=== PATIENT | male | born 1960 | race Caucasian/White ===

== ENCOUNTER 2018-04-03 11:21 | Inpatient (IN) | payer BC ==
[2018-04-03] MEDS ORDERED: Piperacillin/Tazobactam 4.5 GM VIAL ONE (12:03)
[2018-04-03] MEDS ORDERED: Clindamycin/D5W 900 mg/50 ml Premix Bag ONE (12:04)
[2018-04-03 13:10] LABS: #Lymphocytes 0.3 thou/uL (1.20-3.40); #Monocytes 0.5 thou/uL (0.11-0.59); #Neutrophils 7.5 thou/uL (1.40-6.50); %Eosinophils 0.1 % (0.0-10.0); %Lymphocytes 3.2 % (21.0-51.0); %Monocytes 5.6 % (0.0-10.0); Hemoglobin 15.7 g/dL (14.0-18.0); Mean Corpuscular HGB CONC 32.9 g/dL (32.0-36.0); Mean Corpuscular Hemoglobin 31.2 pg (27.0-31.0); Mean Corpuscular Volume 94.6 fL (78.0-98.0); Mean Platelet Volume 8.1 fL (7.4-10.4); Platelet Count 138 thou/uL (130-400); RBC Distribution Width 11.9 % (11.5-14.5); Red Blood Cell (RBC) Count 5.03 mill/uL (4.70-6.10); White Blood Cell (WBC) Count 8.3 thou/uL (4.8-10.8)
[2018-04-03 13:30] LABS: Lactic Acid 3.4 mmol/L (0.5-2.2)
[2018-04-03 13:36] LABS: ALT (SGPT) 39 U/L (8-55); AST (SGOT) 33 U/L (5-34); Albumin 4.6 g/dL (3.5-5.0); Alkaline Phosphatase 47 U/L (40-150); Anion Gap 17 mmol/L (10-20); BUN (Urea Nitrogen) 21 mg/dL (8.4-25.7); Bilirubin, Total 1.5 mg/dL (0.2-1.2); CK (CPK) 98 U/L (30-200); Calc. Creatinine Clearance 0 mL/min (70-130); Calcium 10.6 mg/dL (7.8-10.44); Carbon Dioxide 22 mmol/L (22-29); Chloride 102 mmol/L (98-107); Estimated GFR-MDRD 51; Globulin 2.9 g/dL (2.4-3.5); Glucose 133 mg/dL (70-105); Potassium 4.2 mmol/L (3.5-5.1); Protein, Total 7.5 g/dL (6.0-8.3); Sodium 137 mmol/L (136-145)
[2018-04-03 13:38] LABS: CKMB 0.4 ng/mL (0-6.6); Troponin I Less than 0.010 ng/mL (< 0.028)
[2018-04-03] MEDS ORDERED: Ondansetron HCl/PF 4 MG/2 ML Vial IVP PRN (15:05)
[2018-04-03] MEDS ORDERED: Acetaminophen 325 MG TAB PO PRN (15:05)
[2018-04-03] MEDS ORDERED: HYDROcodone/Acetaminophen 5/325 mg Tablet PO PRN (15:05)
[2018-04-03] MEDS ORDERED: Senokot S 8.6-50 MG TAB PO PRN (15:05)
[2018-04-03] MEDS ORDERED: Calcium Carbonate 500 MG ChewTAB PO PRN (15:05)
[2018-04-03] MEDS ORDERED: Senokot 8.6 MG TAB PO PRN (15:06)
[2018-04-03] MEDS ORDERED: cloNIDine 0.1 MG TAB PO PRN (15:06)
[2018-04-03] MEDS ORDERED: traMADol HCl 50 MG TAB PO PRN (15:06)
[2018-04-03] MEDS ORDERED: Nitroglycerin 0.4 MG TAB (25 Tab Bottle) SL PRN (15:06)
[2018-04-03] MEDS ORDERED: Benzonatate 100 MG CAP PO PRN (15:06)
[2018-04-03] MEDS ORDERED: Diabetic Tussin 200 MG/10 ML UDCUP PO PRN (15:06)
[2018-04-03] MEDS ORDERED: Loratadine 10 MG TAB PO PRN (15:06)
[2018-04-03] MEDS ORDERED: Bisacodyl 5 MG TAB PO PRN (15:06)
[2018-04-03] MEDS ORDERED: hydrALAZINE 20 MG/ML VIAL SLOW IVP PRN (15:06)
[2018-04-03] MEDS ORDERED: Acetaminophen 500 MG TAB ONE (15:30)
--- NOTE | 2018-04-03 16:15 | RAD ---
SINGLE VIEW CHEST: Date: 04/03/18 COMPARISON: 07/07/11. HISTORY: Altered mental status. FINDINGS: Single view of the chest shows a normal sized cardiomediastinal silhouette. There is no evidence of c onsolidation, mass, or pleural effusion. The bones are unremarkable. IMPRESSION: No evidence of acute cardiopulmonary disease. POS: [facility]
[2018-04-03] MEDS ORDERED: Norepinephrine 8 MG/0.9% NS 250 ML ONE (16:18)
[2018-04-03] MEDS ORDERED: Milk Of Magnesia 30 ML UDCUP PO PRN (16:28)
[2018-04-03] MEDS ORDERED: CCU Electrolyte Replacement 1 EACH IVPB ONE (16:28)
[2018-04-03] MEDS ORDERED: Mag-Al 1200 mg/1200 mg/30 ML UDCUP PO PRN (16:28)
[2018-04-03] MEDS ORDERED: Potassium Phosphate 12 MMOL in Sodium Chloride 0.9% 250 ML 250 ML IV PRN (16:39)
[2018-04-03] MEDS ORDERED: Potassium Phosphate 9 MMOL in Sodium Chloride 0.9% 100 ML IVPB PRN (16:39)
[2018-04-03] MEDS ORDERED: CCU ELECTROLYTE REPLACEMENT PROTOCOL FS PRN (16:39)
[2018-04-03] MEDS ORDERED: Potassium Chloride 40 MEQ in Premix Bag 1 BAG IVPB PRN (16:39)
[2018-04-03] MEDS ORDERED: Potassium Chloride 20 MEQ TAB PO PRN (16:39)
[2018-04-03] MEDS ORDERED: Magnesium Oxide 400 MG TAB PO PRN ×2 (16:39)
[2018-04-03] MEDS ORDERED: Potassium Chloride 40 MEQ in Sodium Chloride 0.9% 250 ML 250 ML IVPB PRN (16:39)
[2018-04-03] MEDS ORDERED: Potassium Phosphate 15 MMOL in Sodium Chloride 0.9% 250 ML 250 ML IV PRN (16:39)
[2018-04-03] MEDS ORDERED: Magnesium 2 GM/NS 0.9% 100 ML 2 GM in Premix Bag 1 BAG IVPB PRN (16:39)
--- NOTE | 2018-04-03 17:06 | RAD ---
LEFT ELBOW FOUR VIEWS: CLINICAL HISTORY: Fall with history of cellulitis. FINDINGS: There is soft tissue prominence about the left elbow. No significant joint capsular distention. No acute fracture visualized. IMPRESSION: 1. Soft tissue prominence of the left elbow. Correlation suggested as to the prior clinical history of cellulitis. 2. No underlying acute osseous abnormalities visualized. POS: [facility]
--- NOTE | 2018-04-03 17:10 | HP ---
DATE OF ADMISSION: 04/03/2018 PRIMARY CARE PHYSICIAN: Dr. Haider. CHIEF COMPLAINT: Fever, left elbow pain and swelling after a fall. HISTORY OF PRESENT ILLNESS: Mr. Neumann is a very pleasant 57-year-old otherwise healthy male except for the history of mild intermittent asthma who presented to the emergency room with above-mentioned complaint. History is mainly obtained by the patient's and daughter present in the room. The patient is rather somnolent and not feeling very well at this time, but he is awake, alert, oriented x3 to help supplement the history. Electronic medical records have been reviewed and the case has be en discussed with admitting ER physician, Dr. Gallegos. 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 Two days ago while getting out o f his pickup truck, he fell face forward on his chest and hurt his left elbow. He managed to get up and go to work overnight that day, but when he came back next morning, he noticed that he was having more pain in the left elbow which was now significantly swollen. His also noted that he is some what confused and was not able to answer the question appropriately and noticed high fever. He start ed to have vomiting shortly afterwards. They presented to an urgent care where he received some IM a ntibiotic and oral antibiotic prescriptions were provided. Unfortunately, the patient was not able t o take oral antibiotics as he started to continue to throw up, so brought him to the ER instead. In the emergency room upon presentation, his blood pressure was 116/80 with a heart rate of 120 and a temperature of 101.6. He continued to become severely hypotensive in the emergency room and was res uscitated with over 4 liters of normal saline. His initial workup revealed lactic acid of 3.4, creat inine elevated to 1.42. Otherwise, no other clear signs or symptoms of infection. His WBCs are norm al at 8.3 but neutrophil count is elevated to 91%. No clear source of infection other than the left elbow was found. His left elbow was found to be hot and tender to touch and somewhat swollen without any fluctuance on palpation. Chest x-ray was also unremarkable. He was diagnosed with having sever e sepsis with septic shock and was given appropriate antibiotics in the form of clindamycin, Zosyn, a nd vancomycin. At the time of my examination, the patient's blood pressure has again trended down in the 70s/60s and his heart rate remained in the 120s. He will be started on pressors and will be admitted to the Cri ticme Care Unit. I have discussed the patient with Infectious Disease, Dr. Rob as well as on-call critical care physician, Dr. Jiménez. I have requested the emergency room physician to put a central venous access for this patient. The patient and family otherwise denies any other recent illnesses. He denies any headache, vision c hanges or neck stiffness. One of the grandkids were having some viral infection, but was mild. He d enies any chest pain, shortness of breath or cough. He denies any diarrhea or abdominal pain. He de nies any dysuria, frequency, urgency, or hematuria. He denies high fevers or body ache. PAST MEDICAL HISTORY: Diet-controlled mild intermittent asthma and history of esophageal dilatation. PAST SURGICAL HISTORY: Nasal surgery. PSYCHIATRIC HISTORY: None. SOCIAL HISTORY: He has no history of drug, tobacco or alcohol abuse. 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 ALLERGIES: No known medication allergies. FAMILY HISTORY: Significant for stroke in his mother as well as Alzheimer's run in his family. No h istory of premature coronary artery disease or cancer. No bleeding or clotting disorders. CURRENT MEDICATIONS: Nexium 20 mg daily over the counter and Advair Diskus as needed. REVIEW OF SYSTEMS: A 12-point review of systems was done and is negative except for those mentioned in the history and physical. LABORATORY DATA: CBC shows WBC is 8.3 with 91% neutrophils, otherwise unremarkable. Serum chemistry , BUN normal at 21, creatinine elevated mildly at 1.42. Lactic acid 3.4, total calcium 10.6, total b ilirubin 1.5 with normal AST and ALT. Chest x-ray by my review has no evidence of pneumothorax or he mothorax. No pleural effusion or edema. A 12-lead EKG by my review shows normal sinus rhythm withou t any acute ST or T-wave changes. PHYSICAL EXAMINATION: VITAL SIGNS: Most recent blood pressure 77/68 prior to starting him on pressors. Otherwise, vital s igns upon presentation, blood pressure 116/80, pulse of 120, respirations 24, saturating 96% on room air, temperature 101.6. GENERAL: He does appear sick and toxic appearing. He is lethargic and somnolent, but when woken up he is awake, alert, oriented x3. HEENT: Mucous membranes are slightly dry. No oropharyngeal exudate or erythema. No oral thrush. H ead is normocephalic, atraumatic. Pupils equal, reactive to light and accommodation. Extraocular mo vement intact. NECK: Supple without any lymphadenopathy, JVD or bruit. CHEST: Clear to auscultation without any wheezing, rales or rhonchi, though difficult to auscultate due to positioning. CARDIOVASCULAR: Regular rate and rhythm is tachycardic without any significant murmurs or arrhythmia . ABDOMEN: Soft, nontender, nondistended, positive bowel sounds. EXTREMITIES: Free of any cyanosis, clubbing, or edema except for left elbow edema and redness as wel l as tenderness. No palpable fluid at this time. Range of motion is within normal limit. Radial pu lses are felt bilaterally. No muscle weakness noticed in the arms bilaterally. NEUROLOGIC: Nonfocal. SKIN: Free of any rashes or bruises. Feels warm and dry to touch. PSYCHIATRIC: Normal affect. IMPRESSION AND PLAN: 1. Severe sepsis with septic shock. The source at this time appears to be left elbow cellulitis. W e will get an x-ray of the elbow to rule out an abscess. It does not appear to be the case on physic al examination. We will cover him for aerobes and anaerobes, gram positive and gram negatives. We w ill request consultation with Infectious Disease as well. He will be continued on IV fluids and we w ill get a central line to measure the central venous pressure and start him on Levophed as necessary to keep MAP above 65. He will be admitted to Critical Care Unit. We will also check urinalysis to r ule out urinary tract infection as a cause. No other obvious source of infection is evident at this time. He will be on the CCU electrolyte protocol. We will also request Pulmonary Critical Care phys Dr. Tino doe to follow the patient along for further recommendations regarding Critical Care. 3. Acute kidney insufficiency, likely secondary to severe sepsis. Continue IV fluids and avoid any nephrotoxic medications. We will recheck in the morning. 4. Elevated lactic acid, likely secondary to severe sepsis as well as hypotension. Fluid resuscitat ion has been provided. Recheck lactic acid as well. 5. History of asthma, currently controlled. Add nebulizers as needed 6. Deep venous thrombosis and gastrointestinal prophylaxis. DISPOSITION: Mr. Neumann is currently being admitted to the hospital for severe sepsis and septic sh ock and end-organ damage in the form of renal failure. Estimated length of stay at this time is at l east 3-4 midnights. Further management will depend upon his clinical course. Total time spent in care of this patient 40 minutes.
--- NOTE | 2018-04-03 17:33 | RAD ---
PORTABLE CHEST: 04/03/18 HISTORY: Central line placement. COMPARISON: Earlier exam the same day. There has been interval placement of a right sided subclavian line. Catheter tip overlies the superio r vena cava. No signs of pneumothorax. No other interval change in the appearance of the chest. IMPRESSION: Placement of a right sided subclavian line. No signs of pneumothorax. POS: [facility]
[2018-04-03] MEDS ORDERED: Clindamycin/D5W 300 MG/50 ML BAG IVPB SCH (18:00)
[2018-04-03] MEDS: Piperacillin/Tazobactam 3.375 GM in Sodium Chloride 0.9% 100 ML IVPB SCH ×2 (18:36→23:51)
[2018-04-03] MEDS: Sodium Chloride 0.9% 1,000 ML IV SCH ×2 (18:40→23:51)
[2018-04-03 18:46] VITALS: BMI 30.1
[2018-04-03] MEDS: Famotidine 20 MG TAB PO SCH (21:13)
[2018-04-03 21:17] LABS: Bilirubin Small (Negative); Blood, Urine Negative (Negative); Clarity CLEAR (Clear); Glucose, Urine (Dipstick) Negative (Negative); Leukocyte Small (Negative); Nitrite Negative (Negative); Protein, Urine (Dipstick) Trace mg/dL (Neg-Trace); Specific Gravity, Urine 1.026 (1.002-1.036); Urobilinogen 0.2 mg/dL (0.2-1.0)
[2018-04-03 21:18] LABS: Bacteria/HPF None Seen HPF (None Seen); Hyaline Casts/LPF 0-3 HYALINE CAST LPF (0-3 Hyaline); Pathc Cast-AUWi Flag 0.14 (0-2.49); Squamous Epithelial 0-3 HPF (0-3)
[2018-04-03] MEDS: Clindamycin/D5W 300 MG in Premix Bag 1 BAG IVPB SCH (21:51)
[2018-04-03] MEDS: Mometasone/Formoterol 120 PUFF INHALER INH SCH (22:51)
[2018-04-03 23:08] LABS: Lactic Acid 3.7 mmol/L (0.5-2.2)
[2018-04-03] MEDS: Norepinephrine 8 MG/0.9% NS 250 ML IVPB PRN (23:52)
[2018-04-04] MEDS: Clindamycin/D5W 300 MG in Premix Bag 1 BAG IVPB SCH ×2 (02:07→08:43)
[2018-04-04 04:56] LABS: Anion Gap 15 mmol/L (10-20); BUN (Urea Nitrogen) 22 mg/dL (8.4-25.7); Calc. Creatinine Clearance 66 mL/min (70-130); Calcium 7.5 mg/dL (7.8-10.44); Carbon Dioxide 16 mmol/L (22-29); Chloride 105 mmol/L (98-107); Estimated GFR-MDRD 48; Glucose 147 mg/dL (70-105); Potassium 3.8 mmol/L (3.5-5.1); Sodium 132 mmol/L (136-145)
[2018-04-04] MEDS: Norepinephrine 8 MG/0.9% NS 250 ML IVPB PRN ×2 (05:22→12:19)
[2018-04-04] MEDS: Piperacillin/Tazobactam 3.375 GM in Sodium Chloride 0.9% 100 ML IVPB SCH (05:22)
[2018-04-04 05:27] LABS: Band 32 % (5-11); Lymphocytes 3 % (21-51); MDiff Complete? YES; Mean Corpuscular HGB CONC 33.4 g/dL (32.0-36.0); Mean Corpuscular Hemoglobin 31.7 pg (27.0-31.0); Mean Platelet Volume 7.3 fL (7.4-10.4); Metamyelocyte 7 % (0-0); Monocytes 4 % (0-10); Neutrophil 54 % (42-75); PLT Morphology Comment Appears Adequate; Platelet Count 134 thou/uL (130-400); Red Blood Cell (RBC) Count 4.11 mill/uL (4.70-6.10); White Blood Cell (WBC) Count 13.1 thou/uL (4.8-10.8)
[2018-04-04 06:37] LABS: Lactic Acid 2.8 mmol/L (0.5-2.2)
[2018-04-04] MEDS: Famotidine 20 MG TAB PO SCH ×2 (08:40→20:35)
[2018-04-04] MEDS: Sodium Chloride 0.9% 1,000 ML IV SCH (08:40)
[2018-04-04] MEDS: Saccharomyces boulardii 250 MG CAP PO SCH (08:40)
[2018-04-04] MEDS: Enoxaparin Sodium 40 MG/0.4 ML SYRINGE SC SCH (08:41)
[2018-04-04] MEDS: Vancomycin HCl 1.75 GM in Sodium Chloride 0.9% 500 ML IVPB SCH (12:22)
--- NOTE | 2018-04-04 12:28 | CON ---
DATE OF CONSULTATION: 04/04/2018 SERVICE: Pulmonary Medicine. REASON FOR CONSULTATION: Septic shock. HISTORY OF PRESENT ILLNESS: The patient is a 57-year-old white male with past medical history significant for essentially nothing. He ended up with a hot, red, swollen elbow/skin on his left forearm. He is also having a fever. This was in place for a couple of days prior to presentation to the emergency department. He was finally brought to the ED because of altered mentation. His blood pressures were quite low. He got multiple boluses of fluid. He did have a transient response to that fluid bolus and then subsequently have low blood pressure again. As such, a central line and pressors were initiated. He cannot provide any additional elements of the history, but indicates that for 1 week ago, he was previously in his usual state of health. PAST MEDICAL HISTORY: 1. Asthma, mild intermittent. 2. History of esophageal stricture. PAST SURGICAL HISTORY: Nasal surgery and EGD. SOCIAL HISTORY: Negative for alcohol, tobacco or illicit drug use. 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 He denies any exposure to chemicals, dust asbestos or tuberculosis. FAMILY HISTORY: Noncontributory. ALLERGIES: No known drug allergies. MEDICATIONS: List of his inpatient medications was reviewed. No specific updates were made at this time. REVIEW OF SYSTEMS: General, head, ears, eyes, nose, throat, cardiovascular, respiratory, GI, , musculoskeletal, neurologic and skin is negative except as mentioned in HPI. PHYSICAL EXAMINATION: VITAL SIGNS: Afebrile currently with a T-max of 101 in the Emergency Department , pulse 117, blood pressure 112/78, respirations 27, saturation 96% on room air. GENERAL: The patient is awake and alert, in no apparent distress. LUNGS: Excellent air entry. No prolonged expiratory phase, wheezing, rhonchi or crackles. HEART: Normal rate, regular. ABDOMEN: Soft, nontender, nondistended. Bowel sounds are positive. MUSCULOSKELETAL: No cyanosis or clubbing. There is no pitting in the bilateral lower extremities. He has got some nonpitting edema of the left elbow and forearm. The erythema is actually improving to significant degree. GENITOURINARY: No Marshall. NEUROLOGIC: Grossly nonfocal. LABORATORY DATA: WBC 13.1 and increasing, hemoglobin 13.0, platelets 134,000. Band count is 32% today. Glucose 147, lactate is down trending to 2.8. Creatinine 1.50. Basic metabolic profile is otherwise unremarkable. Bicarbonate is 16, but his anion gap is improved to 15. Urinalysis is negative. IMAGING DATA: 1. Chest x-ray demonstrates no acute cardiopulmonary abnormality. There is no pneumothorax present after a right-sided subclavian central venous catheter was placed. They were in good position. There is likely small bilateral pleural effusions present. 2. Elbow x-ray demonstrates soft tissue prominence of the left elbow. No osseous abnormalities are identified. ASSESSMENT: 1. Septic shock. 2. Cellulitis. 3. Asthma, mild intermittent. DISCUSSION AND PLAN: I will continue our empiric antibiotics. ID is interested in having Surgery to look at him to see whether or not this thing needs to be explored. Pulmonary Critical Care will continue to follow along while the patient remains in this location. We have him on pressors, which will be weaned through time. His CVP is adequate. IV fluids will be interrupted and we will give the patient a diet because he has cleared his encephalopathy. End organ damage appears to be doing better. The acidosis is likely secondary to fluid resuscitation. He will need to remain in the ICU until he is off of his pressor. 70 minutes have been devoted to this patient in various activities. I personally reviewed all imaging studies and laboratory data noted within this document. For fifty percent of this time, I was interacting with the patient at the bedside or coordinating care with the care team. For the remainder of the time I was immediately available to the patient in the hospital unit. DHAVAL
--- NOTE | 2018-04-04 13:34 | CON ---
DATE OF CONSULTATION: 04/04/2018 REASON FOR CONSULTATION: Inflammatory process, left elbow, skin, and soft tissues. 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 Initial BP 116/80 with ta chycardia and temperature 101.6. He became hypotensive. He was given a large volume of IV fluids. Initial lactic acid 3.4, creatinine 1.42, and WBC was 8.3. Neutrophil count 91%. Patient was starte d on broad-spectrum coverage. Currently, he is in the ICU. He is still on vasopressors, but Levophe d dose has been decreased or titrated downwards. He is awake, a little bit confused, but he knows hi s name and recognizes his , who is in the room with him. Appears in some distress, not a lot of pain in the left elbow soft tissues. He has no headaches; no visual symptoms, sore throat, odynophag ia, or dysphagia; no dyspnea or chest pain; no abdominal pain or diarrhea; no genitourinary symptoms; no other joint symptoms. PAST MEDICAL HISTORY: Mild asthma and esophageal dilation. PAST SURGICAL HISTORY: Nasal surgery. SOCIAL HISTORY: Never smoker. 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 ALLERGIES: None. FAMILY HISTORY: CVA, Alzheimer's. CURRENT MEDICATION LIST: He had been on Zosyn and clindamycin. Now, he is on vancomycin, meropenem, and higher dose of clindamycin. He is also on p.r.n. medications for analgesia, IV fluids, Levophed , tramadol. ALLERGIES: No known drug allergies. PHYSICAL EXAMINATION: VITAL SIGNS: T-max 100.4, now 98.8; heart rate is 115, blood pressure 107/74, and O2 sat 93%. SKIN EXAM: Shows erythema around the left elbow soft tissues. There is some swelling, but not a lot of swelling. He has good range of motion of the left elbow without pain. The pain is mostly from p alpation of the soft tissues, particularly at the distal left arm. This is at the posterior aspect. There is some edema of the area. No discoloration. No lymphadenopathy. HEENT: Ocular movements are conjugate. Pupils are equal. Oral cavity dry. NECK: Supple. LUNGS: With symmetric clear breath sounds. HEART: S1 and S2, regular rate. No S3 or S4. ABDOMEN: Soft, not distended or tender. No ascites. No bladder distention. EXTREMITIES: No joint inflammatory activity outside the area of involvement. Pulses 1+ in dorsalis pedis and radialis are 1+ as well. NEUROLOGIC: He is awake, knows his name, and he knows where he is. Still a little bit drowsy. LABORATORY DATA: White cell count went up from 8.3-13, hemoglobin is down to 13, MCV 95, platelets 1 34, 54% neutrophils, 32% bands. Sodium 132, creatinine is at 1.5. Liver profile with bilirubin of 1 .5. Transaminases normal, albumin 4.6, and urinalysis was not remarkable. Microbiology: We have 2 sets of blood cultures that are pending at this time. IMAGING STUDIES: There is a chest x-ray with no lung infiltrates. There is an elbow x-ray with soft tissue prominence. ASSESSMENT: 1. History of asthma. 2. Fall with initially felt to be mild injury to the left elbow soft tissues and now with rapidly pr ogressive inflammatory process with sepsis. DISCUSSION: The clinical examination is more consistent with cellulitis. Possibility of an aggressi ve necrotizing infection is considered as well as bacteremia from plain cellulitis. Abscess formatio n is also considered, possible, although not obvious in the clinical exam. We will proceed MRI with and without contrast. Orthopedic surgeon consult. Switch antimicrobial therapy to meropenem, vancom ycin, and higher dose of clindamycin. Supportive care.
[2018-04-04] MEDS: Clindamycin/D5W 900 MG in Premix Bag 1 BAG IVPB SCH ×2 (13:59→21:38)
[2018-04-04] MEDS: HYDROcodone/Acetaminophen 5/325 mg Tablet PO PRN (14:00)
[2018-04-04] MEDS ORDERED: Clindamycin/D5W 900 MG in Premix Bag 1 BAG IVPB SCH (14:00)
--- NOTE | 2018-04-04 15:08 | PDOC.PN ---
- Subjective Encounter Start Date: 04/04/18 Encounter Start Time: 15:06 Subjective: feels somewhat better.care discussed w at bedside -: elbow more swollen and warm - Objective MAR Reviewed: Yes Vital Signs & Weight: Vital Signs (12 hours) Temp Pulse Ox 04/04/18 14:00 102.5 F H 04/04/18 12:00 98.8 F 04/04/18 07:17 94 L 04/04/18 07:11 94 L 04/04/18 07:00 98.1 F 04/04/18 04:00 99.7 F H Weight Weight 192 lb 3.889 oz Most Recent Monitor Data Heart Rate from ECG 121 NIBP 130/85 NIBP BP-Mean 100 Respiration from ECG 30 SpO2 98 I&O: 04/03/18 04/04/18 04/05/18 06:59 06:59 06:59 Intake Total 2845.7 650 Output Total 700 1000 Balance 2145.7 -350 Result Diagrams: 04/04/18 03:55 04/04/18 03:55 Additional Labs: Microbiology 04/03/18 11:45 Venous blood - Right Hand Blood Culture - Preliminary Specimen has been received and culture in progress. No Growth to date. 04/03/18 11:45 Venous blood - Right Arm Blood Culture - Preliminary Specimen has been received and culture in progress. No Growth to date. Phys Exam - Physical Examination Constitutional: NAD still weak and tired looking but more awake and alert HEENT: PERRLA, moist MMs, sclera anicteric, TM's clear, oral pharynx no lesions , 2+ tonsils Neck: no nodes, no JVD, supple, full ROM Respiratory: no wheezing, no rales, no rhonchi, clear to auscultation bilateral Cardiovascular: RRR, no significant murmur, no rub Gastrointestinal: soft, non-tender, no distention, positive bowel sounds Musculoskeletal: no edema, pulses present L elbow w more induration & extension of swelling into forearm w some palpable fluctuance Neurological: non-focal, normal sensation, moves all 4 limbs Dx/Plan (1) Septic shock Code(s): A41.9 - SEPSIS, UNSPECIFIED ORGANISM; R65.21 - SEVERE SEPSIS WITH SEPTIC SHOCK Status: Acute (2) Cellulitis of left elbow Code(s): L03.114 - CELLULITIS OF LEFT UPPER LIMB Status: Acute (3) ABIMBOLA (acute kidney injury) Code(s): N17.9 - ACUTE KIDNEY FAILURE, UNSPECIFIED Status: Acute (4) Asthma Code(s): J45.909 - UNSPECIFIED ASTHMA, UNCOMPLICATED Status: Chronic - Plan continue antibiotics, out of bed/ambulate, DVT proph w/SCDs Abx changed to broader spectrum & higher dose. -: Will consult Ortho as infection seems to be worse.? septic arthritis -: will need MRI elbow -: ID and PCCM following -: IVF and pressors adjust per dr Jiménez. * .AM labs * BP better Review of Systems - Review of Systems Constitutional: fever, weakness, malaise. negative: chills, sweats, other ENT: negative: Ear Pain, Ear Discharge, Nose Pain, Nose Discharge, Nose Congestion, Mouth Pain, Mouth Swelling, Throat Pain, Throat Swelling, Other Respiratory: negative: Cough, Dry, Shortness of Breath, Hemoptysis, SOB with Excertion, Pleuritic Pain, Sputum, Wheezing Cardiovascular: negative: chest pain, palpitations, orthopnea, paroxysmal nocturnal dyspnea, edema, light headedness, other Gastrointestinal: negative: Nausea, Vomiting, Abdominal Pain, Diarrhea, Constipation, Melena, Hematochezia, Other Genitourinary: negative: Dysuria, Frequency, Incontinence, Hematuria, Retention , Other Musculoskeletal: Other. negative: Neck Pain, Shoulder Pain, Arm Pain, Back Pain , Hand Pain, Leg Pain, Foot Pain Skin: negative: Rash, Lesions, [place], Bruising, Other Neurological: negative: Weakness, Numbness, Incoordination, Change in Speech, Confusion, Seizures, Other - Medications/Allergies Allergies/Adverse Reactions: Allergies Allergy/AdvReac Type Severity Reaction Status Date / Time No Known Drug Allergies Allergy Verified 04/03/18 16:27 Medications: Current Medications Acetaminophen (Tylenol) 650 mg PO Q4H PRN PRN Reason: Headache/Fever/Mild Pain (1-3) Last Admin: 04/03/18 18:39 Dose: 650 mg Hydrocodone Bitart/Acetaminophen (Wallace 5/325) 1 tab PO Q4H PRN PRN Reason: Moderate Pain (4-6) Hydrocodone Bitart/Acetaminophen (Wallace 5/325) 2 tab PO Q4H PRN PRN Reason: Severe Pain (7-10) Last Admin: 04/04/18 14:00 Dose: 2 tab Al Hydroxide/Mg Hydroxide (Maalox) 30 ml PO Q8H PRN PRN Reason: Indigestion Albuterol/Ipratropium (Duoneb) 3 ml NEB [id number] PRN PRN Reason: SOB &/or Wheezing Clonidine (Catapres) 0.1 mg PO Q4H PRN PRN Reason: Systolic BP > 160 Enoxaparin Sodium (Lovenox) 40 mg SC 0900 [facility] Last Admin: 04/04/18 08:41 Dose: 40 mg Famotidine (Pepcid) 20 mg PO BID [facility] Last Admin: 04/04/18 08:40 Dose: 20 mg Guaifenesin (Robitussin Sf) 200 mg PO Q4H PRN PRN Reason: Cough Hydralazine HCl (Apresoline) 10 mg SLOW IVP Q4H PRN PRN Reason: Systolic BP > 170 Norepinephrine Bitartrate (Levophed) 250 mls @ 0 mls/hr IVPB PRN PRN; Protocol PRN Reason: To maintain MAP > 65 Last Admin: 04/04/18 12:19 Dose: 250 mls Vancomycin HCl 1.75 gm/ Sodium (Chloride) 500 mls @ 250 mls/hr IVPB Q24HR [facility] Last Admin: 04/04/18 12:22 Dose: 500 mls Meropenem 500 mg/ Sodium (Chloride) 100 mls @ 200 mls/hr IVPB Q6HR [facility] Clindamycin Phosphate/Dextrose (900 mg/ Device) 50 mls @ 100 mls/hr IVPB Q8HR [facility] Last Admin: 04/04/18 13:59 Dose: 50 mls Loratadine (Claritin) 10 mg PO DAILYPRN PRN PRN Reason: Sinus Symptoms Mometasone Furoate/Formoterol Fumar (Dulera 100 Mcg/5 Mcg Inhaler) 2 puff INH BID-RT [facility] Last Admin: 04/03/18 22:51 Dose: 2 puff Nitroglycerin (Nitrostat) 0.4 mg SL Q5MIN PRN PRN Reason: Chest Pain Ccu Electrolyte (Replacement Protocol) 0 each FS PRN PRN PRN Reason: FOR ELECTROLYTE REPLACEMENT Ondansetron HCl (Zofran) 4 mg IVP Q6H PRN PRN Reason: Nausea/Vomiting Last Admin: 04/03/18 23:58 Dose: 4 mg Saccharomyces Boulardii (Florastor) 250 mg PO DAILY [facility] Last Admin: 04/04/18 08:40 Dose: 250 mg Sodium Chloride (Flush - Normal Saline) 10 ml IVF Q12HR [facility] Sodium Chloride (Flush - Normal Saline) 10 ml IVF PRN PRN PRN Reason: Saline Flush Tramadol HCl (Ultram) 50 mg PO Q4H PRN PRN Reason: Moderate Pain (4-6) Last Admin: 04/03/18 23:58 Dose: 50 mg
--- NOTE | 2018-04-04 16:08 | CON ---
DATE OF CONSULTATION: 04/04/2018 HISTORY OF PRESENT ILLNESS: Mr. Neumann is a 57-year-old white male, who fell while working [place], sustained some injury to the left elbow. This was a week ago. The patient sta otoniel he gradually developed increased redness and swelling around the left elbow into the forearm and up toward the shoulder. He had some fever, some vomiting, and he was admitted to the hospital yester day. The patient had temperature of around 100.4. He was started on antibiotics. There was a quest ion of if the primary problem was the elbow and possibly septic arthritis in the left elbow. The pat ient's last temperature was 102.5. The patient states that he is able to move his left elbow with mi nimal discomfort, and he is able to pronate and supinate the forearm with minimal discomfort. I was called to evaluate the left elbow if I felt that the patient has septic arthritis of the left elbow. Attempts were made to do an MRI of the left elbow, but the patient could not stay in the machine, be cause of claustrophobia, anxiety problems. PAST MEDICAL HISTORY: Medical illnesses: Asthma and esophageal dilatation. He has had nasal surger y. ALLERGIES: None. PHYSICAL EXAMINATION: Left elbow, the patient does have swelling and some erythema around the elbow that goes along the forearm, down toward the wrist. He also has some erythema and swelling up into t he arm toward the shoulder. He is able to actively and I am able to passively move his elbow without pain. He is able to have full pronation and supination with minimal discomfort. He is able to full y flex and extend all of his digits in his left hand also with minimal discomfort. Left hand is neur ovascularly intact. I reviewed the x-rays of the left elbow and they are essentially normal. IMPRESSION: It does not appear that the patient has infection in the left elbow joint. He would not be able to move it as easily and without any pain, as he is doing today, but we will certainly keep an eye on him. I will follow and see how he is looking tomorrow. We will get the MRI tomorrow with the help of anesthesia.
[2018-04-04] MEDS: Meropenem 500 MG in Sodium Chloride 0.9% 100 ML IVPB SCH ×2 (17:29→23:40)
[2018-04-04] MEDS: Mometasone/Formoterol 120 PUFF INHALER INH SCH (18:49)
[2018-04-04] MEDS ORDERED: Vancomycin HCl 1.25 GM in Sodium Chloride 0.9% 250 ML 300 ML IVPB SCH (21:00)
[2018-04-05] MEDS: Norepinephrine 8 MG/0.9% NS 250 ML IVPB PRN (01:39)
[2018-04-05] MEDS: Meropenem 500 MG in Sodium Chloride 0.9% 100 ML IVPB SCH ×4 (05:43→23:41)
[2018-04-05] MEDS: HYDROcodone/Acetaminophen 5/325 mg Tablet PO PRN (06:01)
[2018-04-05] MEDS: Clindamycin/D5W 900 MG in Premix Bag 1 BAG IVPB SCH ×3 (06:20→21:34)
[2018-04-05 06:41] LABS: Anion Gap 9 mmol/L (10-20); BUN (Urea Nitrogen) 15 mg/dL (8.4-25.7); Calc. Creatinine Clearance 96 mL/min (70-130); Calcium 7.9 mg/dL (7.8-10.44); Carbon Dioxide 23 mmol/L (22-29); Chloride 107 mmol/L (98-107); Estimated GFR-MDRD 74; Glucose 106 mg/dL (70-105); Magnesium 1.3 mg/dL (1.6-2.6); Potassium 3.3 mmol/L (3.5-5.1); Sodium 136 mmol/L (136-145)
[2018-04-05] MEDS: Mometasone/Formoterol 120 PUFF INHALER INH SCH (06:47)
[2018-04-05 06:56] LABS: Phosphorus 1.5 mg/dL (2.3-4.7)
[2018-04-05 07:25] LABS: Band 48 % (5-11); Hemoglobin 11.9 g/dL (14.0-18.0); Lymphocytes 7 % (21-51); MDiff Complete? YES; Mean Corpuscular HGB CONC 34.3 g/dL (32.0-36.0); Mean Corpuscular Hemoglobin 32.1 pg (27.0-31.0); Mean Corpuscular Volume 93.7 fL (78.0-98.0); Mean Platelet Volume 7.6 fL (7.4-10.4); Metamyelocyte 3 % (0-0); Monocytes 2 % (0-10); Neutrophil 40 % (42-75); PLT Morphology Comment Appears Decreased; Platelet Count 119 thou/uL (130-400); RBC Distribution Width 11.8 % (11.5-14.5)
[2018-04-05] MEDS: Famotidine 20 MG TAB PO SCH (09:10)
[2018-04-05] MEDS: Enoxaparin Sodium 40 MG/0.4 ML SYRINGE SC SCH (09:10)
[2018-04-05] MEDS: Saccharomyces boulardii 250 MG CAP PO SCH (09:10)
[2018-04-05] MEDS ORDERED: Potassium Phosphate 12 MMOL in Sodium Chloride 0.9% 100 ML IVPB SCH (10:15)
--- NOTE | 2018-04-05 11:34 | PDOC.PN ---
- Subjective Encounter Start Date: 04/05/18 Encounter Start Time: 11:32 Subjective: feels about the same.care discussed w at bedaside -: elbow still warm to touch w on & off fevers -: no CP/SOB - Objective MAR Reviewed: Yes Vital Signs & Weight: Vital Signs (12 hours) Temp Pulse Ox 04/05/18 11:00 98.9 F 04/05/18 08:00 95 04/05/18 07:00 98.6 F 04/05/18 06:47 93 L 04/05/18 00:00 99.2 F Weight Weight 192 lb 3.889 oz Most Recent Monitor Data Heart Rate from ECG 100 NIBP 120/87 NIBP BP-Mean 98 Respiration from ECG 25 SpO2 95 I&O: 04/04/18 04/05/18 04/06/18 06:59 06:59 06:59 Intake Total 2845.7 3361 30 Output Total 700 3250 340 Balance 2145.7 111 -310 Result Diagrams: 04/05/18 05:50 04/05/18 05:50 Additional Labs: Microbiology 04/03/18 11:45 Venous blood - Right Hand Blood Culture - Preliminary Specimen has been received and culture in progress. No Growth to date. 04/03/18 11:45 Venous blood - Right Arm Blood Culture - Preliminary Specimen has been received and culture in progress. No Growth to date. Phys Exam - Physical Examination Constitutional: NAD HEENT: PERRLA, moist MMs, sclera anicteric, oral pharynx no lesions Neck: no nodes, no JVD, supple, full ROM Respiratory: no wheezing, no rales, no rhonchi, clear to auscultation bilateral Cardiovascular: RRR, no significant murmur, no rub Gastrointestinal: soft, non-tender, no distention, positive bowel sounds Musculoskeletal: no edema, edema present L elbow still warm and erythematous but swelling/induration slightly less NL ROM Neurological: non-focal, normal sensation, moves all 4 limbs Psychiatric: normal affect, A&O x 3 Dx/Plan (1) Septic shock Code(s): A41.9 - SEPSIS, UNSPECIFIED ORGANISM; R65.21 - SEVERE SEPSIS WITH SEPTIC SHOCK Status: Acute (2) Cellulitis of left elbow Code(s): L03.114 - CELLULITIS OF LEFT UPPER LIMB Status: Acute (3) ABIMBOLA (acute kidney injury) Code(s): N17.9 - ACUTE KIDNEY FAILURE, UNSPECIFIED Status: Acute (4) Asthma Code(s): J45.909 - UNSPECIFIED ASTHMA, UNCOMPLICATED Status: Chronic - Plan plan discussed w/ family, continue antibiotics, out of bed/ambulate, DVT proph w /SCDs Levophed titrated to low dose.not on any IVF as much given in alst 2 days -: Cont empiric Abx.still w symtpoms -: MRI elbow today .may need I&D. ortho following -: CCU monitoring -: replace and recheck oscar/Phos * . Review of Systems - Review of Systems Constitutional: fever, chills, sweats, weakness ENT: negative: Ear Pain, Ear Discharge, Nose Pain, Nose Discharge, Nose Congestion, Mouth Pain, Mouth Swelling, Throat Pain, Throat Swelling, Other Respiratory: negative: Cough, Dry, Shortness of Breath, Hemoptysis, SOB with Excertion, Pleuritic Pain, Sputum, Wheezing Cardiovascular: negative: chest pain, palpitations, orthopnea, paroxysmal nocturnal dyspnea, edema, light headedness, other Gastrointestinal: negative: Nausea, Vomiting, Abdominal Pain, Diarrhea, Constipation, Melena, Hematochezia, Other Genitourinary: negative: Dysuria, Frequency, Incontinence, Hematuria, Retention , Other Musculoskeletal: Other. negative: Neck Pain, Shoulder Pain, Arm Pain, Back Pain , Hand Pain, Leg Pain, Foot Pain Skin: negative: Rash, Lesions, [place], Bruising, Other Neurological: negative: Weakness, Numbness, Incoordination, Change in Speech, Confusion, Seizures, Other - Medications/Allergies Allergies/Adverse Reactions: Allergies Allergy/AdvReac Type Severity Reaction Status Date / Time No Known Drug Allergies Allergy Verified 04/03/18 16:27 Medications: Current Medications Acetaminophen (Tylenol) 650 mg PO Q4H PRN PRN Reason: Headache/Fever/Mild Pain (1-3) Last Admin: 04/03/18 18:39 Dose: 650 mg Hydrocodone Bitart/Acetaminophen ([place] 5/325) 1 tab PO Q4H PRN PRN Reason: Moderate Pain (4-6) Hydrocodone Bitart/Acetaminophen ([place] 5/325) 2 tab PO Q4H PRN PRN Reason: Severe Pain (7-10) Last Admin: 04/05/18 06:01 Dose: 2 tab Al Hydroxide/Mg Hydroxide (Maalox) 30 ml PO Q8H PRN PRN Reason: Indigestion Albuterol/Ipratropium (Duoneb) 3 ml NEB [id number] PRN PRN Reason: SOB &/or Wheezing Clonidine (Catapres) 0.1 mg PO Q4H PRN PRN Reason: Systolic BP > 160 Enoxaparin Sodium (Lovenox) 40 mg SC 0900 [facility] Last Admin: 04/05/18 09:10 Dose: 40 mg Famotidine (Pepcid) 20 mg PO BID [facility] Last Admin: 04/05/18 09:10 Dose: 20 mg Guaifenesin (Robitussin Sf) 200 mg PO Q4H PRN PRN Reason: Cough Hydralazine HCl (Apresoline) 10 mg SLOW IVP Q4H PRN PRN Reason: Systolic BP > 170 Norepinephrine Bitartrate (Levophed) 250 mls @ 0 mls/hr IVPB PRN PRN; Protocol PRN Reason: To maintain MAP > 65 Last Admin: 04/05/18 01:39 Dose: 250 mls Vancomycin HCl 1.75 gm/ Sodium (Chloride) 500 mls @ 250 mls/hr IVPB Q24HR [facility] Last Admin: 04/04/18 12:22 Dose: 500 mls Meropenem 500 mg/ Sodium (Chloride) 100 mls @ 200 mls/hr IVPB Q6HR [facility] Last Admin: 04/05/18 11:30 Dose: 100 mls Clindamycin Phosphate/Dextrose (900 mg/ Device) 50 mls @ 100 mls/hr IVPB Q8HR [facility] Last Admin: 04/05/18 06:20 Dose: 50 mls Magnesium Sulfate 1 gm/ Sodium (Chloride) 102 mls @ 100 mls/hr IVPB ONE [facility] Stop: 04/05/18 12:00 Last Admin: 04/05/18 10:28 Dose: 102 mls Potassium Phosphate 12 mmol/ (Sodium Chloride) 104 mls @ 25 mls/hr IVPB ONE [facility] Stop: 04/05/18 14:00 Last Admin: 04/05/18 10:28 Dose: 104 mls Loratadine (Claritin) 10 mg PO DAILYPRN PRN PRN Reason: Sinus Symptoms Nitroglycerin (Nitrostat) 0.4 mg SL Q5MIN PRN PRN Reason: Chest Pain Ccu Electrolyte (Replacement Protocol) 0 each FS PRN PRN PRN Reason: FOR ELECTROLYTE REPLACEMENT Ondansetron HCl (Zofran) 4 mg IVP Q6H PRN PRN Reason: Nausea/Vomiting Last Admin: 04/03/18 23:58 Dose: 4 mg Saccharomyces Boulardii (Florastor) 250 mg PO DAILY [facility] Last Admin: 04/05/18 09:10 Dose: 250 mg Sodium Chloride (Flush - Normal Saline) 10 ml IVF Q12HR [facility] Last Admin: 04/05/18 09:16 Dose: 10 ml Sodium Chloride (Flush - Normal Saline) 10 ml IVF PRN PRN PRN Reason: Saline Flush Tramadol HCl (Ultram) 50 mg PO Q4H PRN PRN Reason: Moderate Pain (4-6) Last Admin: 04/03/18 23:58 Dose: 50 mg
[2018-04-05] MEDS: Vancomycin HCl 1.75 GM in Sodium Chloride 0.9% 500 ML IVPB SCH (11:43)
[2018-04-05] MEDS ORDERED: Magnesium 2 GM/50 ML 2 GM in Premix Bag 1 BAG IVPB SCH (12:30)
[2018-04-05] MEDS ORDERED: Potassium Chloride 20 MEQ TAB PO SCH (12:30)
--- NOTE | 2018-04-05 13:31 | PRG ---
DATE OF SERVICE: 04/05/2018 SERVICE: Pulmonary Medicine. INTERVAL HISTORY: The patient is doing outstanding from a respiratory standpoint. He is coughing a little bit and bringing up a little bit of white phlegm. His left arm has less discomfort to it than it did previously. He denies any current fevers or chills. There were no significant overnight brooke nts. He was weaned off his pressors overnight. PHYSICAL EXAMINATION: VITAL SIGNS: Afebrile, pulse 100, blood pressure 120/87, respirations 25, saturation 95% on room air . GENERAL: The patient is awake and alert, in no apparent distress. LUNGS: Excellent air entry. Minimal dependent crackles are present. HEART: Normal rate, regular. ABDOMEN: Soft, nontender, nondistended. Bowel sounds are positive. MUSCULOSKELETAL: No cyanosis or clubbing. There is no pitting in the bilateral lower extremities. NEUROLOGIC: Grossly nonfocal. LABORATORY DATA: WBC 15.0, hemoglobin 11.9, platelets 119,000. Band count is increasing to 48%. [facility] metabolic profile is otherwise unremarkable except for a potassium of 3.3, phosphorus 1.5 and mag nesium 1.3. Blood cultures x2 are unremarkable. ASSESSMENT: 1. Septic shock, secondary to cellulitis, resolving. 2. Cellulitis of the left upper extremity. 3. Asthma, mild and intermittent, currently under good control. DISCUSSION AND PLAN: We will continue our empiric antibiotics. He is going down for an MRI today to make certain there is no collection of fluid or abscess that needs to be drained. At this point, we can transition him out of the ICU to the medical unit. Magnesium, potassium and phosphorus will nee d to be replaced today and I will facilitate that. Pulmonary will continue to follow for an addition al 24 hours until his white blood cell count responds, but clinically the patient is improving and my suspicion is that whether his condition is being adequately addressed.
[2018-04-05] MEDS ORDERED: Midazolam HCl 2 mg/2 ml Vial ONE (15:06)
[2018-04-05] MEDS: Piperacillin/Tazobactam 3.375 GM in Sodium Chloride 0.9% 100 ML IVPB SCH (18:48)
--- NOTE | 2018-04-05 18:55 | MRI ---
MRI OF LEFT ELBOW PERFORMED WITH AND WITHOUT CONTRAST ENHANCEMENT: History: Redness and swelling of left elbow. Fell, hitting ground, approximately one week ago. Unable to straighten elbow. FINDINGS: There is no significant elbow joint effusion. There is no marrow edema changes or evidence for fractu re. No signs of any abscess collection. There is cellulitis type changes with edema change in the sub cutaneous fat. There is no evidence for any abscess formation. Some minimal edema changes are seen in the superficial brachialis muscle. IMPRESSION: Findings compatible with cellulitis. No evidence of underlying fracture or osteomyelitis. No evidence for air within the soft tissues to suggest a necrotizing fascitis. POS: [facility]
[2018-04-06 00:37] LABS: Vancomycin, Random 8.6 ug/mL (See Comment)
[2018-04-06] MEDS: Vancomycin HCl 1.5 GM in Sodium Chloride 0.9% 250 ML 300 ML IVPB SCH ×2 (01:47→14:21)
[2018-04-06] MEDS: Clindamycin/D5W 900 MG in Premix Bag 1 BAG IVPB SCH ×3 (05:18→21:05)
[2018-04-06 06:06] LABS: Band 30 % (5-11); Eosinophils 1 % (0-10); Hemoglobin 10.9 g/dL (14.0-18.0); Lymphocytes 5 % (21-51); MDiff Complete? YES; Mean Corpuscular HGB CONC 33.3 g/dL (32.0-36.0); Mean Corpuscular Hemoglobin 31.1 pg (27.0-31.0); Mean Corpuscular Volume 93.3 fL (78.0-98.0); Mean Platelet Volume 7.5 fL (7.4-10.4); Monocytes 4 % (0-10); Neutrophil 60 % (42-75); PLT Morphology Comment Appears Decreased; Platelet Count 115 thou/uL (130-400); RBC Distribution Width 11.8 % (11.5-14.5); Red Blood Cell (RBC) Count 3.51 mill/uL (4.70-6.10); White Blood Cell (WBC) Count 13.9 thou/uL (4.8-10.8)
[2018-04-06 06:09] LABS: Anion Gap 10 mmol/L (10-20); BUN (Urea Nitrogen) 14 mg/dL (8.4-25.7); Calc. Creatinine Clearance 121 mL/min (70-130); Carbon Dioxide 23 mmol/L (22-29); Chloride 107 mmol/L (98-107); Estimated GFR-MDRD Greater than 90; Glucose 100 mg/dL (70-105); Magnesium 2.1 mg/dL (1.6-2.6); Potassium 3.5 mmol/L (3.5-5.1); Sodium 136 mmol/L (136-145)
[2018-04-06] MEDS: Meropenem 500 MG in Sodium Chloride 0.9% 100 ML IVPB SCH ×3 (06:41→17:46)
[2018-04-06] MEDS: Saccharomyces boulardii 250 MG CAP PO SCH (08:30)
[2018-04-06] MEDS: Enoxaparin Sodium 40 MG/0.4 ML SYRINGE SC SCH (08:30)
[2018-04-06] MEDS ORDERED: Potassium Phosphate 21 MMOL in Sodium Chloride 0.9% 250 ML 250 ML IVPB SCH (09:00)
[2018-04-06] MEDS ORDERED: Potassium Chloride 20 MEQ TAB PO SCH (12:30)
[2018-04-06] MEDS ORDERED: Potassium Phosphate 15 MMOL in Sodium Chloride 0.9% 250 ML 250 ML IVPB SCH (13:00)
--- NOTE | 2018-04-06 14:52 | PDOC.PN ---
- Subjective Encounter Start Date: 04/06/18 Encounter Start Time: 14:51 Subjective: feels a little better.elbow swelling somewhat less -: no fever/chills - Objective MAR Reviewed: Yes Vital Signs & Weight: Vital Signs (12 hours) Temp Pulse Resp BP Pulse Ox 04/06/18 08:46 97 04/06/18 07:42 99.2 F 92 19 114/72 97 04/06/18 06:50 95 04/06/18 04:28 98.7 F 93 20 125/80 95 Weight Weight 192 lb 3.889 oz Most Recent Monitor Data Heart Rate from ECG 102 NIBP 119/85 NIBP BP-Mean 96 Respiration from ECG 27 SpO2 94 I&O: 04/05/18 04/06/18 04/07/18 06:59 06:59 06:59 Intake Total 3361 2173 Output Total 3250 640 Balance 111 1533 Result Diagrams: 04/06/18 05:15 04/06/18 05:15 Additional Labs: Microbiology 04/03/18 11:45 Venous blood - Right Hand Blood Culture - Preliminary NO GROWTH AT 48 HOURS 04/03/18 11:45 Venous blood - Right Arm Blood Culture - Preliminary NO GROWTH AT 48 HOURS Phys Exam - Physical Examination Constitutional: NAD HEENT: PERRLA, moist MMs, sclera anicteric, oral pharynx no lesions Neck: no nodes, no JVD, supple, full ROM Respiratory: no wheezing, no rales, no rhonchi, clear to auscultation bilateral Cardiovascular: RRR, no significant murmur, no rub Gastrointestinal: soft, non-tender, no distention, positive bowel sounds Musculoskeletal: pulses present, edema present L elbow erythema & swelling receeding,less indurated Neurological: non-focal, normal sensation, moves all 4 limbs Psychiatric: normal affect, A&O x 3 Dx/Plan (1) Septic shock Code(s): A41.9 - SEPSIS, UNSPECIFIED ORGANISM; R65.21 - SEVERE SEPSIS WITH SEPTIC SHOCK Status: Acute (2) Cellulitis of left elbow Code(s): L03.114 - CELLULITIS OF LEFT UPPER LIMB Status: Acute (3) ABIMBOLA (acute kidney injury) Code(s): N17.9 - ACUTE KIDNEY FAILURE, UNSPECIFIED Status: Acute (4) Asthma Code(s): J45.909 - UNSPECIFIED ASTHMA, UNCOMPLICATED Status: Chronic - Plan continue antibiotics, out of bed/ambulate, DVT proph w/SCDs BP stable w/o IVF and pressors -: cont broad spectrum ABx for another 24 hours w possible DC 04/08. -: Blood Cx negative so far -: replace and recheck lytes. -: Hd stable * . Review of Systems - Review of Systems Constitutional: weakness, malaise. negative: fever, chills, sweats, other ENT: negative: Ear Pain, Ear Discharge, Nose Pain, Nose Discharge, Nose Congestion, Mouth Pain, Mouth Swelling, Throat Pain, Throat Swelling, Other Respiratory: negative: Cough, Dry, Shortness of Breath, Hemoptysis, SOB with Excertion, Pleuritic Pain, Sputum, Wheezing Cardiovascular: negative: chest pain, palpitations, orthopnea, paroxysmal nocturnal dyspnea, edema, light headedness, other Gastrointestinal: negative: Nausea, Vomiting, Abdominal Pain, Diarrhea, Constipation, Melena, Hematochezia, Other Genitourinary: negative: Dysuria, Frequency, Incontinence, Hematuria, Retention , Other Musculoskeletal: Other. negative: Neck Pain, Shoulder Pain, Arm Pain, Back Pain , Hand Pain, Leg Pain, Foot Pain Skin: negative: Rash, Lesions, [place], Bruising, Other Neurological: negative: Weakness, Numbness, Incoordination, Change in Speech, Confusion, Seizures, Other - Medications/Allergies Allergies/Adverse Reactions: Allergies Allergy/AdvReac Type Severity Reaction Status Date / Time No Known Drug Allergies Allergy Verified 04/03/18 16:27 Medications: Current Medications Acetaminophen (Tylenol) 650 mg PO Q4H PRN PRN Reason: Headache/Fever/Mild Pain (1-3) Last Admin: 04/03/18 18:39 Dose: 650 mg Hydrocodone Bitart/Acetaminophen ([place] 5/325) 1 tab PO Q4H PRN PRN Reason: Moderate Pain (4-6) Hydrocodone Bitart/Acetaminophen ([place] 5/325) 2 tab PO Q4H PRN PRN Reason: Severe Pain (7-10) Last Admin: 04/05/18 06:01 Dose: 2 tab Al Hydroxide/Mg Hydroxide (Maalox) 30 ml PO Q8H PRN PRN Reason: Indigestion Albuterol/Ipratropium (Duoneb) 3 ml NEB [id number] PRN PRN Reason: SOB &/or Wheezing Clonidine (Catapres) 0.1 mg PO Q4H PRN PRN Reason: Systolic BP > 160 Enoxaparin Sodium (Lovenox) 40 mg SC 0900 [facility] Last Admin: 04/06/18 08:30 Dose: 40 mg Guaifenesin (Robitussin Sf) 200 mg PO Q4H PRN PRN Reason: Cough Hydralazine HCl (Apresoline) 10 mg SLOW IVP Q4H PRN PRN Reason: Systolic BP > 170 Meropenem 500 mg/ Sodium (Chloride) 100 mls @ 200 mls/hr IVPB Q6HR [facility] Last Admin: 04/06/18 12:46 Dose: 100 mls Clindamycin Phosphate/Dextrose (900 mg/ Device) 50 mls @ 100 mls/hr IVPB Q8HR [facility] Last Admin: 04/06/18 12:52 Dose: 50 mls Vancomycin HCl 1.5 gm/ Sodium (Chloride) 300 mls @ 200 mls/hr IVPB 0200,1400 [facility] Last Admin: 04/06/18 14:21 Dose: 300 mls Potassium Phosphate 15 mmol/ (Sodium Chloride) 255 mls @ 62.5 mls/hr IVPB NOW [facility] Stop: 04/06/18 17:05 Last Admin: 04/06/18 14:22 Dose: 255 mls Loratadine (Claritin) 10 mg PO DAILYPRN PRN PRN Reason: Sinus Symptoms Nitroglycerin (Nitrostat) 0.4 mg SL Q5MIN PRN PRN Reason: Chest Pain Ccu Electrolyte (Replacement Protocol) 0 each FS PRN PRN PRN Reason: FOR ELECTROLYTE REPLACEMENT Ondansetron HCl (Zofran) 4 mg IVP Q6H PRN PRN Reason: Nausea/Vomiting Last Admin: 04/03/18 23:58 Dose: 4 mg Saccharomyces Boulardii (Florastor) 250 mg PO DAILY [facility] Last Admin: 04/06/18 08:30 Dose: 250 mg Sodium Chloride (Flush - Normal Saline) 10 ml IVF Q12HR [facility] Last Admin: 04/06/18 08:34 Dose: Not Given Sodium Chloride (Flush - Normal Saline) 10 ml IVF PRN PRN PRN Reason: Saline Flush Last Admin: 04/05/18 18:21 Dose: 10 ml Tramadol HCl (Ultram) 50 mg PO Q4H PRN PRN Reason: Moderate Pain (4-6) Last Admin: 04/03/18 23:58 Dose: 50 mg
--- NOTE | 2018-04-06 15:46 | ULT ---
LEFT UPPER EXTREMITY VENOUS ULTRASOUND WITH DOPPLER: HISTORY: The patient fell and injured left elbow approximately 5 days ago. Persistent swelling and pain. Alvin hensley. COMPARISON: None. TECHNIQUE: Marino scale, color flow, Doppler imaging, and spectral waveform analysis was performed of the left upp er extremity venous system. FINDINGS: There is compressibility and flow in the in the jugular vein. There is flow in the subclavian vein. There is compressibility and flow in the axillary vein, brachial vein, basilic vein, ulnar vein, cep halic vein. There is soft tissue swelling in the region of pain. IMPRESSION: 1. No evidence of thrombus in the left upper extremity venous system. 2. Soft tissue swelling. POS: [facility]
--- NOTE | 2018-04-06 16:42 | PRG ---
DATE OF SERVICE: 04/06/2018 SUBJECTIVE: The patient has been transferred to the floor. He does not have much pain in the left upper extremity, but there is more erythema noted. No respiratory symptoms or abdominal pain, no diarrhea, no genitourinary symptoms. OBJECTIVE: VITAL SIGNS: T-max decreased, max pulse 92, respirations 19, O2 sat 97%. LUNGS: Clear. HEART: S1, S2, regular rate. ABDOMEN: Soft, not distended or tender. EXTREMITIES: Still quite a bit of erythema in the left upper extremity centered around the elbow and the left arm. The posterior aspect particularly has more erythema. There is some edema associated with that as well. Moves extremities equally. Pulses are normal. No discoloration. No evidence abscess formation. LABORATORY DATA: White cell count 13.9, hemoglobin 10.9, platelets 115,000, neutrophils, 30% bands, 60% neutrophils, 1% eosinophils, 5% lymphocytes. Sodium 136, creatinine 0.82. Two sets of blood culture no growth at 48 hours. The MRI with cellulitis, no evidence of fracture or osteomyelitis. No air in soft tissues. Vascular consult has been ordered and is pending at this time. ASSESSMENT: Fall with injury of left elbow with inflammatory process. MRI did not show any evidence of septic arthritis. No bone disease. No abscess or evidence of necrotizing process. DISCUSSION: The patient is improving steadily. Continue current antimicrobials and follow up the results of the duplex ultrasound. NUD
--- NOTE | 2018-04-06 20:04 | PRG ---
DATE OF SERVICE: 04/06/2018 SERVICE: Pulmonary Medicine. INTERVAL HISTORY: The patient continues to improvement in the upper extremity. He denies any curren t fevers or chills. Otherwise, he is having decreasing discomfort in that arm. There is no shortnes s of breath or chest discomfort. OBJECTIVE: VITAL SIGNS: Afebrile with T-max of 100.3, pulse 92, blood pressure 114/72, respirations 19, saturat ion 97% on room air. GENERAL: The patient is awake, alert, no apparent distress. LUNGS: Decent air entry. There is no prolonged expiratory phase or wheezing present. HEART: Normal rate, regular. ABDOMEN: Soft, nontender, nondistended. Bowel sounds are positive. MUSCULOSKELETAL: No cyanosis or clubbing. There is a left upper extremity pitting and a little bit of erythema which is improved. The swelling, however, is a little worse today than it was previously . LABORATORY DATA: WBC 13.9 and down trending, hemoglobin 10.9, platelets 115,000. Basic metabolic pr ofile is completely unremarkable. Microbiology remains negative to date. He has 2 blood cultures th at are unremarkable. IMAGIN. MRI of the left upper extremity demonstrates no evidence of fluid collection or gas in fascia. 2. Ultrasound upper extremity demonstrates no evidence of DVT. ASSESSMENT: 1. Septic shock, resolved. 2. Cellulitis of the left upper extremity. 3. Asthma, mild intermittent, currently under good control. DISCUSSION AND PLAN: The patient is doing absolutely fantastic from a respiratory standpoint. I derek l replace potassium and phosphorus today. At this point, the patient has no further requirements for inpatient Pulmonary or Critical Care opinion and I will sign off. Please call with additional quest ions or concerns moving forward.
[2018-04-07] MEDS: Meropenem 500 MG in Sodium Chloride 0.9% 100 ML IVPB SCH ×5 (00:06→23:48)
[2018-04-07] MEDS: Vancomycin HCl 1.5 GM in Sodium Chloride 0.9% 250 ML 300 ML IVPB SCH (01:30)
[2018-04-07] MEDS: Clindamycin/D5W 900 MG in Premix Bag 1 BAG IVPB SCH ×3 (05:18→21:39)
[2018-04-07 06:05] LABS: ALT (SGPT) 151 U/L (8-55); AST (SGOT) 115 U/L (5-34); Albumin 2.8 g/dL (3.5-5.0); Alkaline Phosphatase 134 U/L (40-150); Anion Gap 12 mmol/L (10-20); BUN (Urea Nitrogen) 13 mg/dL (8.4-25.7); Calc. Creatinine Clearance 124 mL/min (70-130); Calcium 8.3 mg/dL (7.8-10.44); Carbon Dioxide 21 mmol/L (22-29); Chloride 108 mmol/L (98-107); Estimated GFR-MDRD Greater than 90; Globulin 2.6 g/dL (2.4-3.5); Glucose 96 mg/dL (70-105); Phosphorus 1.4 mg/dL (2.3-4.7); Potassium 3.5 mmol/L (3.5-5.1); Protein, Total 5.4 g/dL (6.0-8.3); Sodium 137 mmol/L (136-145)
[2018-04-07] MEDS ORDERED: Potassium Phosphate 21 MMOL in Sodium Chloride 0.9% 250 ML 250 ML IVPB SCH (06:30)
[2018-04-07 06:39] LABS: Band 12 % (5-11); Eosinophils 8 % (0-10); Hemoglobin 11.5 g/dL (14.0-18.0); Lymphocytes 7 % (21-51); MDiff Complete? YES; Mean Corpuscular HGB CONC 34.6 g/dL (32.0-36.0); Mean Corpuscular Hemoglobin 32.2 pg (27.0-31.0); Mean Corpuscular Volume 93.1 fL (78.0-98.0); Mean Platelet Volume 7.4 fL (7.4-10.4); Monocytes 20 % (0-10); Myelocyte 2 % (0-0); Neutrophil 51 % (42-75); Platelet Count 150 thou/uL (130-400); Red Blood Cell (RBC) Count 3.58 mill/uL (4.70-6.10); White Blood Cell (WBC) Count 10.4 thou/uL (4.8-10.8)
[2018-04-07] MEDS: Saccharomyces boulardii 250 MG CAP PO SCH (08:16)
[2018-04-07] MEDS: Enoxaparin Sodium 40 MG/0.4 ML SYRINGE SC SCH (08:16)
[2018-04-07] MEDS: Vancomycin HCl 1.75 GM in Sodium Chloride 0.9% 500 ML IVPB SCH (14:09)
--- NOTE | 2018-04-07 16:06 | PDOC.PN ---
- Subjective Encounter Start Date: 04/07/18 Encounter Start Time: 16:03 Subjective: feels better.arm swelling getting better -: able to eat about half of his lunch - Objective MAR Reviewed: Yes Vital Signs & Weight: Vital Signs (12 hours) Temp Pulse Resp BP Pulse Ox 04/07/18 08:00 100 04/07/18 07:22 97.9 F 96 22 H 123/66 100 Weight Weight 192 lb 3.889 oz Most Recent Monitor Data Heart Rate from ECG 102 NIBP 119/85 NIBP BP-Mean 96 Respiration from ECG 27 SpO2 94 I&O: 04/06/18 04/07/18 04/08/18 06:59 06:59 06:59 Intake Total 2173 3110 Output Total 640 Balance 1533 3110 Result Diagrams: 04/07/18 05:15 04/07/18 05:15 Additional Labs: Microbiology 04/03/18 11:45 Venous blood - Right Hand Blood Culture - Preliminary NO GROWTH AT 48 HOURS 04/03/18 11:45 Venous blood - Right Arm Blood Culture - Preliminary NO GROWTH AT 48 HOURS Phys Exam - Physical Examination Constitutional: NAD HEENT: PERRLA, moist MMs, sclera anicteric, oral pharynx no lesions Neck: no nodes, no JVD, supple, full ROM Respiratory: no wheezing, no rales, no rhonchi, clear to auscultation bilateral Cardiovascular: RRR, no significant murmur Gastrointestinal: soft, non-tender, no distention, positive bowel sounds Musculoskeletal: no edema, pulses present Neurological: non-focal, normal sensation, moves all 4 limbs Psychiatric: normal affect, A&O x 3 Skin: no rash Dx/Plan (1) Cellulitis of left elbow Code(s): L03.114 - CELLULITIS OF LEFT UPPER LIMB Status: Acute (2) Septic shock Code(s): A41.9 - SEPSIS, UNSPECIFIED ORGANISM; R65.21 - SEVERE SEPSIS WITH SEPTIC SHOCK Status: Resolved (3) ABIMBOLA (acute kidney injury) Code(s): N17.9 - ACUTE KIDNEY FAILURE, UNSPECIFIED Status: Resolved (4) Asthma Code(s): J45.909 - UNSPECIFIED ASTHMA, UNCOMPLICATED Status: Chronic - Plan continue antibiotics, out of bed/ambulate, DVT proph w/SCDs clinically better.cont IV Abx -: Suspect he would need IV Abx for naother 24 hrs w Home on PO 04/09 -: monitor lytes and replace prn -: care discussed w at bedside * . Review of Systems - Review of Systems Constitutional: weakness, malaise. negative: fever, chills, sweats, other Eyes: negative: Pain, Vision Change, Conjunctivae Inflammation, Eyelid Inflammation, Redness, Other Respiratory: negative: Cough, Dry, Shortness of Breath, Hemoptysis, SOB with Excertion, Pleuritic Pain, Sputum, Wheezing Cardiovascular: negative: chest pain, palpitations, orthopnea, paroxysmal nocturnal dyspnea, edema, light headedness, other Gastrointestinal: negative: Nausea, Vomiting, Abdominal Pain, Diarrhea, Constipation, Melena, Hematochezia, Other Genitourinary: negative: Dysuria, Frequency, Incontinence, Hematuria, Retention , Other Musculoskeletal: negative: Neck Pain, Shoulder Pain, Arm Pain, Back Pain, Hand Pain, Leg Pain, Foot Pain, Other Skin: negative: Rash, Lesions, [place], Bruising, Other Neurological: negative: Weakness, Numbness, Incoordination, Change in Speech, Confusion, Seizures, Other - Medications/Allergies Allergies/Adverse Reactions: Allergies Allergy/AdvReac Type Severity Reaction Status Date / Time No Known Drug Allergies Allergy Verified 04/03/18 16:27 Medications: Current Medications Acetaminophen (Tylenol) 650 mg PO Q4H PRN PRN Reason: Headache/Fever/Mild Pain (1-3) Last Admin: 04/03/18 18:39 Dose: 650 mg Hydrocodone Bitart/Acetaminophen ([place] 5/325) 1 tab PO Q4H PRN PRN Reason: Moderate Pain (4-6) Hydrocodone Bitart/Acetaminophen ([place] 5/325) 2 tab PO Q4H PRN PRN Reason: Severe Pain (7-10) Last Admin: 04/05/18 06:01 Dose: 2 tab Al Hydroxide/Mg Hydroxide (Maalox) 30 ml PO Q8H PRN PRN Reason: Indigestion Albuterol/Ipratropium (Duoneb) 3 ml NEB [id number] PRN PRN Reason: SOB &/or Wheezing Clonidine (Catapres) 0.1 mg PO Q4H PRN PRN Reason: Systolic BP > 160 Enoxaparin Sodium (Lovenox) 40 mg SC 0900 GARETH Last Admin: 04/07/18 08:16 Dose: 40 mg Guaifenesin (Robitussin Sf) 200 mg PO Q4H PRN PRN Reason: Cough Hydralazine HCl (Apresoline) 10 mg SLOW IVP Q4H PRN PRN Reason: Systolic BP > 170 Meropenem 500 mg/ Sodium (Chloride) 100 mls @ 200 mls/hr IVPB Q6HR [facility] Last Admin: 04/07/18 12:11 Dose: 100 mls Clindamycin Phosphate/Dextrose (900 mg/ Device) 50 mls @ 100 mls/hr IVPB Q8HR [facility] Last Admin: 04/07/18 14:08 Dose: 50 mls Vancomycin HCl 1.75 gm/ Sodium (Chloride) 500 mls @ 250 mls/hr IVPB 0200,1400 [facility] Last Admin: 04/07/18 14:09 Dose: 500 mls Loratadine (Claritin) 10 mg PO DAILYPRN PRN PRN Reason: Sinus Symptoms Nitroglycerin (Nitrostat) 0.4 mg SL Q5MIN PRN PRN Reason: Chest Pain Ccu Electrolyte (Replacement Protocol) 0 each FS PRN PRN PRN Reason: FOR ELECTROLYTE REPLACEMENT Ondansetron HCl (Zofran) 4 mg IVP Q6H PRN PRN Reason: Nausea/Vomiting Last Admin: 04/03/18 23:58 Dose: 4 mg Saccharomyces Boulardii (Florastor) 250 mg PO DAILY [facility] Last Admin: 04/07/18 08:16 Dose: 250 mg Sodium Chloride (Flush - Normal Saline) 10 ml IVF Q12HR [facility] Last Admin: 04/07/18 08:18 Dose: 10 ml Sodium Chloride (Flush - Normal Saline) 10 ml IVF PRN PRN PRN Reason: Saline Flush Last Admin: 04/05/18 18:21 Dose: 10 ml Tramadol HCl (Ultram) 50 mg PO Q4H PRN PRN Reason: Moderate Pain (4-6) Last Admin: 04/03/18 23:58 Dose: 50 mg
[2018-04-08] MEDS: Vancomycin HCl 1.75 GM in Sodium Chloride 0.9% 500 ML IVPB SCH (02:38)
[2018-04-08 05:33] LABS: Anion Gap 9 mmol/L (10-20); BUN (Urea Nitrogen) 12 mg/dL (8.4-25.7); Calc. Creatinine Clearance 126 mL/min (70-130); Calcium 8.4 mg/dL (7.8-10.44); Carbon Dioxide 24 mmol/L (22-29); Chloride 108 mmol/L (98-107); Estimated GFR-MDRD Greater than 90; Glucose 91 mg/dL (70-105); Phosphorus 2.6 mg/dL (2.3-4.7); Potassium 3.6 mmol/L (3.5-5.1); Sodium 137 mmol/L (136-145)
[2018-04-08] MEDS: Meropenem 500 MG in Sodium Chloride 0.9% 100 ML IVPB SCH ×2 (05:50→13:30)
[2018-04-08] MEDS: Clindamycin/D5W 900 MG in Premix Bag 1 BAG IVPB SCH (06:13)
[2018-04-08 06:15] LABS: Band 10 % (5-11); Eosinophils 12 % (0-10); Hemoglobin 12.2 g/dL (14.0-18.0); Lymphocytes 21 % (21-51); MDiff Complete? YES; Mean Corpuscular Hemoglobin 31.7 pg (27.0-31.0); Mean Corpuscular Volume 93.1 fL (78.0-98.0); Mean Platelet Volume 8.1 fL (7.4-10.4); Monocytes 10 % (0-10); Myelocyte 5 % (0-0); Neutrophil 41 % (42-75); PLT Morphology Comment Appears Decreased; Platelet Count 161 thou/uL (130-400); Reactive Lymphocytes 1 % (0-10); Red Blood Cell (RBC) Count 3.85 mill/uL (4.70-6.10)
[2018-04-08 07:36] VITALS: BP 123/81; TEMP 98
[2018-04-08] MEDS: Enoxaparin Sodium 40 MG/0.4 ML SYRINGE SC SCH (08:30)
[2018-04-08] MEDS: Saccharomyces boulardii 250 MG CAP PO SCH (08:30)
--- NOTE | 2018-04-08 08:42 | PRG ---
DATE OF SERVICE: 04/08/2018 Mr. Neumann is feeling a little better, still quite a bit of inflammatory change, but less than befor e. No respiratory symptoms, abdominal pain or diarrhea. He has been afebrile for a while now. He is awake, alert, oriented. PHYSICAL EXAMINATION: LUNGS: Clear. CARDIOVASCULAR: S1, S2, regular rate. EXTREMITIES: Left arm with less edema, less erythema. Range of motion of the elbow is good. He had a little bit of serous drainage according to the 's description. White cell count is at 9.0, hemoglobin 12, platelets 161 with 81% neutrophils, 2% bands, showed defin ite improvement there. Chemistry is unremarkable and negative blood cultures. ASSESSMENT AND DISCUSSION: Injury to the left upper extremity with subsequent cellulitis. No eviden ce of abscess or joint/bone involvement. No evidence of vascular thrombosis. Continue current regim en except for clindamycin, which will be discontinued at this point, continue ertapenem and vancomyci n. In terms of transition to oral antimicrobial therapy, it is going to be somewhat difficult radha e of lack of microbiology information. May have to continue IV for another week or 2 with a PICC macy paul
--- NOTE | 2018-04-08 09:34 | PQF ---
HEATHER MILLER MALIK MD [id number] CLINICAL DOCUMENTATION IMPROVEMENT CLARIFICATION FORM: ICD-10 Updated PLEASE DO AN ADDENDUM TO THE PROGRESS NOTE WITH ANY DOCUMENTATION UPDATES OR ADDITIONS AND CARRY THROUGH TO DC SUMMARY. THANK YOU. DATE: 04/08/18 ATTN: DR. HYDE Please exercise your independent, professional judgment in responding to the clarification form. Clinical indicators are provided on the bottom of this form for your review Please check appropriate box(s): [ ] Encephalopathy: Type: [ ] Acute [ ] Subacute [ ] Chronic Etiology: [ ] Metabolic [ ] Septic [ ] Unspecified [ ] Other (please specify) [ ] Transient Alteration of Awareness [ ] Other diagnosis [ ] Unable to determine In addition, please specify: Present on Admission (POA): [ ] Yes [ ] No [ ] Unable to determine For continuity of documentation, please document condition throughout progress notes and discharge summary. Thank You. CLINICAL INDICATORS - SIGNS / SYMPTOMS / LABS 04-04 Liane(ID): alittle bit confused. fall with initially felt to be mild injury to the left elbow soft tissues and now with rapidly inflammatory process with sepsis. cellulitis. Creat 1.42, lactic acid 3.4, 91% neutros on admit labs 04/04 04/04 Brading: acidosis, encephalopathy 04/04 IM: acute kidney injury RISK FACTORS H&P: severe sepsis with septic shock, left elbow cellulitis TREATMENTS: CCU monitoring 04/04 per orders ID consult 04/04 per orders IV antibiotics--> 04/04 vanc, merrem and clindamycin, vancomycin started 04/06 per MAR IV fluids--> 1.4 L NS 04/04, 04/05 1 liter NS per MAR Vasopressor-Levophed drip per AUG 30 THANK YOU, SHAHEEN (This form is maintained as a part of the permanent medical record) 2015 [employer]. All Rights Reserved Shaheen Alvarado RN, BSN, CCDS [email or web address] [phone] MTDD
--- NOTE | 2018-04-08 19:52 | PRG ---
DATE OF SERVICE: 04/08/2018 Mr. Neumann is feeling much better. The amount of improvement in the left upper extremity inflammato ry changes is remarkable, just in 24 hours. He denies any respiratory symptoms, abdominal pain, no d iarrhea. His vital signs essentially normal. Marked reduction of the swelling is almost back to nor mal. Microbiology is negative. I think at this point he can be discharged on oral clindamycin and C ipro. I discussed potential adverse reactions including Clostridium difficile colitis. Treat for ab out a week and half.
--- NOTE | 2018-04-09 10:59 | DIS ---
DATE OF DISCHARGE: 04/08/2018 DISCHARGE DISPOSITION: Home. FOLLOWUP: 1. Follow up with primary care physician, Dr. Haider in 1 week. 2. Follow up with Dr. Rob, Infectious Disease as needed. The patient was seen on the day of discharge. Denies any new complaints. No chest pain, shortness o f breath, palpitations. ALLERGIES: No known drug allergies. DISCHARGE MEDICATIONS: Clindamycin 300 mg every 6 hourly, ciprofloxacin 500 mg twice a day, Florasto r 250 mg daily, Breo Ellipta 100/25 daily. Patient will take antibiotics for a total of [address] Rob. BRIEF HOSPITAL COURSE: Patient is a 57-year-old male who presented to the emergency room with fever, left elbow pain and swelling after an episode of fall. Please refer to the history and physical for further details. The patient was admitted to the Intensive Care Unit with a diagnosis of septic shock. He was seen by multiple consultants including Infectious Disease, Pulmonary or Critical Care as well as Orthopedics . He was placed on broad spectrum antibiotics along with IV fluids and pressors. Later on, he was w eaned off the pressors and transferred to the medical floor. MRI of the left elbow showed findings c ompatible with cellulitis. There was no underlying fracture or osteomyelitis. His antibiotics have been changed to ciprofloxacin and clindamycin for 10 more days. Risk from the antibiotics not limite d to Clostridium difficile colitis was discussed with the patient and the family. They stated unders tanding. He has been cleared by consultants for discharge. FINAL DIAGNOSES: 1. Severe sepsis with acute organ dysfunction/septic shock secondary to left upper extremity celluli tis. 2. Suspected bacteremia. Although the blood culture remained negative. 3. Toxic metabolic encephalopathy secondary to #1. 4. Mild intermittent asthma. 5. Obesity with body mass index 30.1. 6. Hypokalemia. 7. Hypomagnesemia. 8. Hypophosphatemia. 9. Abnormal liver function tests secondary to sepsis. 10. Lactic acidosis secondary to sepsis. 11. Acute kidney injury, resolved. 12. Hyponatremia. 13. Gastroesophageal reflux disease. Plan of care was discussed with patient and the family in detail. They stated understanding. SIGNIFICANT LABORATORY DATA: Cortisol 20. Maximum creatinine 1.5, at discharge 0.7. Lactic acid on admission 3.4. WBC maximum was 15 with 48% bandemia.
== END 2018-04-08 18:38 | disposition home or self-care (01) | DRG 871 ==
LOC: ERS 11:21 → ERHOLD 16:46 → CCU 17:54 → T4-B 04-05 16:26
PROVIDERS: ADMIT Internal Medicine; ATTEND Internal Medicine
DX: A41.9 Sepsis, unspecified organism (principal); G92 Toxic encephalopathy; R65.21 Severe sepsis with septic shock; N17.9 Acute kidney failure, unspecified; L03.114 Cellulitis of left upper limb; E87.2 Acidosis; M00.9 Pyogenic arthritis, unspecified; E87.1 Hypo-osmolality and hyponatremia; J45.20 Mild intermittent asthma, uncomplicated; I95.9 Hypotension, unspecified; Z79.899 Other long term (current) drug therapy; E66.9 Obesity, unspecified; Z68.30 Body mass index [BMI] 30.0-30.9, adult; E87.5 Hyperkalemia; E83.42 Hypomagnesemia; K21.9 Gastro-esophageal reflux disease without esophagitis
CPT/HCPCS: 36415; 36556; 71045; 80048; 80053; 80202; 81001; 82533; 82550; 82553; 83605; 83735; 84100; 84484; 85025; 87040; 93005; 94760; 96361; 96365; 96366; 96367; J1650; J2185; J2250; J2405; J2543; J3370; J3475; J3490; J7050

== ENCOUNTER 2018-07-06 11:26 | Outpatient (CLI) | payer BC ==
--- NOTE | 2018-07-06 13:45 | RAD ---
LEFT HIP 2 VIEWS: HISTORY: Left hip pain without associated injury. FINDINGS: Mild degenerative changes of the left hip joint. No fracture or dislocation. IMPRESSION: Mild degenerative changes without fracture or dislocation. POS: [facility]
== END 2018-07-06 11:27 | disposition home or self-care (01) ==
LOC: BICRAD 11:26
PROVIDERS: ATTEND Family Medicine
DX: Z00.00 Encounter for general adult medical examination without abnormal findings (principal); M25.552 Pain in left hip; M16.12 Unilateral primary osteoarthritis, left hip
CPT/HCPCS: 36415; 80053; 80061; 81001; 83036; 84443; 85025; G0103

== ENCOUNTER 2021-10-15 08:07 | Outpatient (CLI) | payer BC | END 2021-10-15 08:08 | disposition home or self-care (01) | LOC: ULT 08:07 | PROVIDERS: ATTEND Family Medicine | DX: E04.1 Nontoxic single thyroid nodule (principal) | CPT/HCPCS: 76536 ==

== ENCOUNTER 2023-12-19 12:10 | Outpatient (CLI) | payer BC ==
[2023-12-19 15:02] LABS: #Basophils 0.09 10x3/uL (0.0-0.2); #Eosinphils 0.66 10x3/uL (0.0-0.5); #Monocytes 0.86 10x3/uL (0.0-1.1); #Neutrophils 4.17 10x3/uL (1.5-8.4); %Basophils 1.2 % (0.0-2.0); %Eosinophils 8.9 % (0.0-6.0); %Lymphocytes 22.1 % (18.0-47.0); %Monocytes 11.5 % (0.0-10.0); Hematocrit 37.5 % (38.8-50.0); Hemoglobin 12.5 g/dL (13.5-17.5); Mean Corpuscular HGB CONC 33.3 g/dL (32.0-36.0); Mean Corpuscular Hemoglobin 30.3 pg (27.0-33.0); Mean Corpuscular Volume 90.8 fL (81.2-95.1); Mean Platelet Volume 10.2 fL (7.4-10.4); Platelet Count 307 10x3/uL (150-450); RBC Distribution Width 13.3 % (11.5-14.5); Red Blood Cell (RBC) Count 4.13 10x6/uL (4.32-5.72); White Blood Cell (WBC) Count 7.5 10x3/uL (3.5-10.5)
[2023-12-19 15:25] LABS: Anion Gap 17 mmol/L (10-20); BUN (Urea Nitrogen) 13 mg/dL (8.4-25.7); Calc. Creatinine Clearance 0 mL/min (70-130); Calcium 10.2 mg/dL (7.8-10.44); Carbon Dioxide 22 mmol/L (23-31); Chloride 107 mmol/L (98-107); Estimated GFR 91; Glucose 88 mg/dL (80-115); Potassium 4.7 mmol/L (3.5-5.1); Sodium 141 mmol/L (136-145)
== END 2023-12-19 12:11 | disposition home or self-care (01) ==
LOC: LABBT 12:10
PROVIDERS: ATTEND Internal Medicine Cardiovascular Disease
DX: Z01.812 Encounter for preprocedural laboratory examination (principal)
CPT/HCPCS: 80048; 85025

== ENCOUNTER 2023-12-22 09:52 | Day surgery (SDC) | payer BC ==
[2023-12-19 13:20] VITALS: BMI 26.6
== END 2023-12-22 17:44 | disposition home or self-care (01) ==
LOC: SDC 09:52
PROVIDERS: ATTEND Internal Medicine Cardiovascular Disease
PROC: 4A023N7 Measurement of Cardiac Sampling and Pressure, Left Heart, Percutaneous Approach (ICD-10-PCS; principal; 2023-12-22)
PROC: B205YZZ Plain Radiography of Left Heart using Other Contrast (ICD-10-PCS; principal; 2023-12-22)
DX: I42.9 Cardiomyopathy, unspecified (principal); I51.3 Intracardiac thrombosis, not elsewhere classified; J45.909 Unspecified asthma, uncomplicated; E78.5 Hyperlipidemia, unspecified; K21.9 Gastro-esophageal reflux disease without esophagitis; I25.10 Atherosclerotic heart disease of native coronary artery without angina pectoris; Z79.899 Other long term (current) drug therapy; Z79.51 Long term (current) use of inhaled steroids
CPT/HCPCS: 93455; 99152; C1769; C1894; J0153; J1644; J2250; J3010; Q9967